=== PATIENT | female | born 1990 | race Caucasian/White ===

== ENCOUNTER 2025-09-17 15:40 | Emergency (ER) | payer OTHER ==
[~2025-09-17] VITALS: Ht 167.6 cm; Wt 44.5 kg
[2025-09-17 15:54] VITALS: BP 131/82; O2SAT 97
== END 2025-09-17 17:00 | disposition left against medical advice (07) ==
LOC: ER 15:40
DX: R21 Rash and other nonspecific skin eruption (principal); L29.9 Pruritus, unspecified; Z79.52 Long term (current) use of systemic steroids; Z85.828 Personal history of other malignant neoplasm of skin; Z88.5 Allergy status to narcotic agent
CPT/HCPCS: A4606; A4663